=== PATIENT | male | born 1970 | race Caucasian/White ===

== ENCOUNTER 2018-04-07 20:00 | Emergency (ER) | payer SELFPAY ==
[~2018-04-07] VITALS: Ht 182.9 cm; Wt 123.3 kg
[2018-04-07 20:14] VITALS: BP 137/98
== END 2018-04-07 20:14 | disposition left against medical advice (07) ==
LOC: ER 20:00
DX: Z53.21 Procedure and treatment not carried out due to patient leaving prior to being seen by health care provider (principal); F17.200 Nicotine dependence, unspecified, uncomplicated